=== PATIENT | female | born 1950 | race Caucasian/White ===

== ENCOUNTER 2019-06-04 02:42 | Observation (INO) ==
[2019-06-04] MEDS ORDERED: Naloxone 0.4 MG/ML INJ IVP PRN (04:51)
--- NOTE | 2019-06-04 04:52 | Internal Med History&Physical ---
<Genevieve Pierre - Last Filed: 06/04/19 04:54> Date of Encounter: 06/04/19 Time of Encounter: 04:51 Internal Medicine - H&P: HPI Chief complaint: Tongue swelling Admitted From: Hospital to Hospital Transfer Plans for Post Hospital Care: Home History of present illness: Ms. Nguyen is a 68 year old female with past medical history of hypertension, "memory loss" who presented to [facility] as a transfer from [place] [facility] due to angioedema and potential need for intubation for protection of airway. Upon my examination the patient she reported that at about 11 o'clock tonight she woke up with the feeling of the right side of her tongue swelling the progressed to the feeling of her entire mouth swelling in her tongue taking up her whole mouth. She also had neck and submandibular swelling as well. Additionally she had difficulty breathing because of the tongue swelling and had up a wash cloth in her mouth to help. She took 2 Benadryl prior to going to ED. She denied any numbness, tingling, fever, chills, chest pain nausea, vomiting, abdominal pain, rash, itching. She reported having symptoms similar but much less severe with only having a little right tongue swelling that quickly resolved on its own about 2 weeks ago. She has been taking lisinopril for many years. She did recently start a new medication for her memory loss about 1 week ago and is not had any other side effects to it. She denied eating any new foods, new travel, new work type, insect bite. Denied any known allergies to food her medications. She denied tobacco use, alcohol, drug use. She is family history of mother dying of MD. She has a full code. At [place] [facility] the patient was given Benadryl, epinephrine, famotidine, methylprednisolone. She was transferred to [facility] ICU for observation in case the patient would to decompensate and have increased difficulty breathing and swelling requiring rapid sequence intubation. - Initial vitals: temperature 97.6, HR 61, RR 16, BP 206/87, SpO2 96% on room air. - WBC 11.4, hemoglobin 13, platelets 324. CMP unremarkable. Past Med Surg Social Fam HX - Past Medical History Attestation: Yes The following information was validated with the patient. Source: patient Medical history: hypertension, other Additional medical history: Memory loss Psychiatric history: no psych history - Past Surgical History Surgical History: appendectomy, hip replacement - Social History Smoking Status: Former smoker Alcohol use: none Drug use: none - Family History Mother Hx Family Cardiac Disorders: Yes (MD) Internal Medicine - H&P: Meds Allergy/AdvReac Type Severity Reaction Status Date / Time No Known Allergies Allergy Verified 06/04/19 01:25 All Systems PM: A 10-system review of systems was performed and is negative for pertinent findings except as documented above in the HPI. - Constitutional Constitutional: no chills, no fever(s) - EENT Eyes: no change in vision Nose, mouth and throat: throat swelling, tongue swelling - Cardiovascular Cardiovascular ROS IM: no chest pain, no palpitations - Respiratory Respiratory: dyspnea, no cough, no wheezing - Gastrointestinal Gastrointestinal: no abdominal pain, no nausea, no vomiting - Musculoskeletal Musculoskeletal ROS IM: no joint swelling, no muscle cramps - Integumentary Integumentary IM: no pruritus, no rash - Neurological Neurological ROS: memory loss, no dizziness, no headache(s) - Hematologic/Lymphatic Hematologic/Lymphatic: no easy bruising - Allergic/Immunologic Allergic/Immunologic: tongue swelling, throat swelling, no uticaria - Constitutional Vitals: Temp Pulse Resp BP Pulse Ox 98.2 F 71 12 188/55 96 06/04/19 04:00 06/04/19 04:00 06/04/19 04:00 06/04/19 04:00 06/04/19 04:00 Exam: Gen.: Vitals noted. No acute distress. AAOx3 HEENT: oropharynx clear, no swelling of the soft hard palate or tongue, Normocephalic, atraumatic Neck: swelling of submandibular region and tenderness Cardiac: RRR, no murmur, +S1/S2 Pulmonary: CTA bilaterally, no wheezes, rales or rhonchi, equal chest expansion Abdomen: soft, nontender, Bowel sounds noted, no guarding MSK: ROM intact, no joint swelling noted Extremities: no BLE edema, nontender calf, no cyanosis or clubbing Neuro: A&Ox3, moves all extremities, no focal deficits Psych: Appropriate mood and behavior - Assessment and Plan (1) Angioedema Current Visit: No Status: Acute Assessment and plan: New onset angioedema with tongue swelling, swollen throat and submandibular region causing difficulty in breathing. 2 weeks ago patient had right-sided tongue swelling that quickly resolved on its own. -Etiology is highly suspicious for reaction to lisinopril. She has had recent new medication for memory loss (patient unsure of medication that will bring list) that she has been taking for one week now that should also consider, however she had a less severe reaction with tongue swelling one week prior to starting this new medication. 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 Unlikely food reaction. No new insect bites. No known allergies to food or medications previously. Unlikely to be a peritonsillar abscess as the patient does not have fever, chills. At [place] the patient had been given Benadryl, epinephrine, famotidine, methylprednisolone. - Patient is currently on room air 96% SpO2. She is clinically improved. - on examination patient does not have swelling of the tongue or soft/ hard teller te. She does still have swelling of her neck and submandibular region. Patient reports that the swelling has significantly decreased and she does not have any difficulty breathing. No hives or itching. Plan: - would consider discharging with oral prednisone 20-40 mg steroid tapered over 5 to 7 days - if patient were to have increased swelling or difficulty breathing then we will prepare for rapid sequence intubation. Would also give additional IV Solu- Medrol, epinephrine (IM or drip). Also consider giving Icatibant which is a synthetic bradykinin B2 receptor antagonist that is approved for the treatment of hereditary angioedema and possibly fresh frozen plasma that may help with ACEi angioedema as it contains DIANELYS. - Consider ordering C4 level to evaluate for C1 deficiency - close monitoring for increased swelling or difficulty breathing - supplemental oxygen PRN - DO NOT give lisinopril. Instructed patient to no longer take lisinopril since she has had this reaction. The etiology is most likely secondary to this medication however, if she were to develop a similar reaction with abstaining from taking lisinopril then further testing would need to be pursued to evaluate for etiology such as a hereditary required C1 inhibitor deficiency. Qualifiers: Encounter type: initial encounter Qualified Code(s): T78.3XXA - Angio neurotic edema, initial encounter (2) Hypertension Current Visit: Yes Status: Acute Assessment and plan: Patient is known history of hypertension taking lisinopril for many years. -BP elevated 188/55 -holding home lisinopril due to angioedema -will order hydralazine PRN -patient will likely need to be started on new antihypertensive medication. Consider calcium channel michael. Qualifiers: Hypertension type: essential hypertension Qualified Code(s): I10 - Essential (primary) hypertension (3) DVT prophylaxis Current Visit: Yes Status: Acute Assessment and plan: Heparin SQ (4) Leukocytosis Current Visit: Yes Status: Acute Assessment and plan: The patient is a mild leukocytosis with WBC 11.4. This is likely secondary to acute swelling and angioedema. She is afebrile and there is no obvious source of infection. -Will continue to monitor. No antibiotics at this time Qualifiers: Leukocytosis type: unspecified Qualified Code(s): D72.829 - Elevated white blood cell count, unspecified - Time Spent With Patient Total time spent is greater than 50% in coordination of care (as documented) at patient's floor/unit and/or counseling patient: <Thelma Handy - Last Filed: 06/04/19 10:29> Date of Encounter: 06/04/19 Internal Medicine - H&P: HPI History of present illness: Ms. Nguyen is a 68 year old female All Systems PM: A 10-system review of systems was performed and is negative for pertinent findings except as documented above in the HPI. - Constitutional Vitals: Temp Pulse Resp BP Pulse Ox 98.6 F 79 16 151/61 96 06/04/19 06:48 06/04/19 08:00 06/04/19 08:00 06/04/19 08:00 06/04/19 08:00 - Assessment and Plan (1) Angioedema Current Visit: No Status: Acute Qualifiers: Encounter type: initial encounter Qualified Code(s): T78.3XXA - Angioneurotic edema, initial encounter (2) Hypertension Current Visit: Yes Status: Acute Qualifiers: Hypertension type: essential hypertension Qualified Code(s): I10 - Essent ial (primary) hypertension (3) DVT prophylaxis Current Visit: Yes Status: Acute (4) Leukocytosis Current Visit: Yes Status: Acute Qualifiers: Leukocytosis type: unspecified Qualified Code(s): D72.829 - Elevated white blood cell count, unspecified - Time Spent With Patient Total time spent is greater than 50% in coordination of care (as documented) at patient's floor/unit and/or counseling patient: - Attending Attestation I performed a history and physical examination of the patient and discussed their management with the resident. I reviewed the resident's note and agree with the documented plan of care.
[2019-06-04 12:25] VITALS: BP 190/78
--- NOTE | 2019-06-04 12:30 | Discharge Summary ---
- NOTES TO OUTPATIENT PROVIDER Notes to Outpatient Provider: Follow-up with blood pressure after lisinopril DC'd. Date of Encounter: 06/04/19 Time of Encounter: 12:06 - Discharge Diagnosis (1) Angioedema Priority: Primary Status: Acute Qualifiers: Encounter type: initial encounter Qualified Code(s): T78.3XXA - Angioneurotic edema, initial encounter (2) Hypertension Priority: Secondary Status: Acute Qualifiers: Hypertension type: essential hypertension Qualified Code(s): I10 - Essential (primary) hypertension (3) DVT prophylaxis Priority: Secondary Status: Acute (4) Leukocytosis Priority: Secondary Status: Acute Qualifiers: Leukocytosis type: unspecified Qualified Code(s): D72.829 - Elevated white blood cell count, unspecified Hospital course: Ms. Nguyen is a 68 year old female with past medical history of hypertension on lisinopril presented as a transfer from [place] ED due to angioedema. Patient woke up with tongue welling and submandibular swelling with resulting SOB. She had similar symptoms that resolved two weeks ago. She has taken lisinopril for many years. In [place] ED she was given Benadryl, epinephrine, Pepcid, Solu Medrol. She was transferred here for close monitoring of airway. On arrival patient was hemodynamically stable. Her tongue swelling dramatically improved. She did not have any further need for epinephrine. Lisinopril was held on admission. Denver jauregui BP did rise after lisinopril is held and so she was started on Norvasc. She was discharged home in stable condition with prescription for Norvasc, Prednisone, Pepcid, Zyrtec. - Time Spent with Patient Total time spent providing and/or coordinating discharge services: - Discharge Medications Home Medications: Cetirizine HCl [Zyrtec] 10 mg PO DAILY 7 Days #7 tablet 06/04/19 [Rx] Famotidine [Pepcid] 20 mg PO BID #14 tablet 06/04/19 [Rx] amLODIPine [Norvasc] 5 mg PO DAILY #14 tablet 06/04/19 [Rx] predniSONE [PredniSONE] 40 mg PO DAILY #10 tablet 06/04/19 [Rx] Allergies/Adverse Reactions: Allergy/AdvReac Type Severity Reaction Status Date / Time No Known Allergies Allergy Verified 06/04/19 01:25 Date of admission: 06/04/19 03:18 Primary care physician: Thang Alcantar Jr, MD Discharging clinician: Qing Reyes - Constitutional Vitals: Temp Pulse Resp BP Pulse Ox 98.5 F 83 16 145/77 96 06/04/19 11:16 06/04/19 10:00 06/04/19 10:00 06/04/19 10:00 06/04/19 10:00 Exam: Gen.: No acute distress. AAOx3 Head: NC/AT ENT: mild swelling of tongue Neck: No swelling of submandibular region as previously present. Cardiac: RRR, no murmur, +S1/S2 Pulmonary: CTA bilaterally, no wheezes, rales or rhonchi, equal chest expansion Abdomen: soft, nontender, Bowel sounds noted, no guarding MSK: ROM intact, no joint swelling noted Extremities: no BLE edema, nontender calf, no cyanosis or clubbing Neuro: A&Ox3, moves all extremities, no focal deficits Psych: Irritable mood - Patient Status Disposition: Home, Self-Care Condition: Good Functional capacity at discharge: independent ambulation Overall status at discharge: patient is progressing back to baseline - Discharge Instructions Follow Up With: Thang Alcantar Jr, MD [Primary Care Provider] - Additional Instructions: Follow-up with primary care physician to adjust BP medications. - Diet and Activity Activity: increase activity as tolerated Diet: low fat, low cholesterol, low salt diet
== END 2019-06-04 13:05 | disposition home or self-care (01) ==
LOC: ICNU → SUATTDRO 03:18
PROVIDERS: ADMIT Internal Medicine; ATTEND Student in an Organized Health Care Education/Training Program

== ENCOUNTER 2021-06-22 07:17 | Inpatient (IN) ==
[2021-06-22] MEDS ORDERED: methylPREDNISolone 125 MG/2 ML VIAL IVP ONE (07:29)
[2021-06-22] MEDS ORDERED: EPINEPHrine 1 MG/ML VIAL IM ONE (07:29)
[2021-06-22] MEDS ORDERED: Famotidine 20 MG/2 ML VIAL IVP ONE (07:29)
[2021-06-22] MEDS ORDERED: methylPREDNISolone 125 MG/2 ML VIAL ONE (07:34)
[2021-06-22] MEDS ORDERED: *HR* EPINEPHrine 0.3 MG/0.3 ML (PEN) ONE (07:34)
[2021-06-22] MEDS ORDERED: EPINEPHrine 1 MG/ML VIAL ONE (07:51)
[2021-06-22] MEDS ORDERED: Racepinephrine Neb 0.5 ML VIAL IH ONE (07:57)
[2021-06-22] MEDS ORDERED: Lidocaine -MPF 4% 5 ML AMPUL ONE (08:06)
[2021-06-22] MEDS ORDERED: Lidocaine 1% 20 ML MDV ONE (08:11)
[2021-06-22] MEDS ORDERED: Lidocaine/EPI 1:200k 1% PF 10 ML VIAL ONE (08:14)
[2021-06-22] MEDS ORDERED: Oxymetazoline Nasal SPRAY BOTTLE NS ONE (08:19)
[2021-06-22] MEDS ORDERED: Lidocaine Jelly 11 ml Syringe ONE (08:19)
[2021-06-22] MEDS ORDERED: *HR* Succinylcholine 200 MG/10 ML VIAL IVP ONE (08:22)
[2021-06-22] MEDS ORDERED: Lidocaine -MPF 2% 2 ML VIAL ONE (08:22)
[2021-06-22] MEDS ORDERED: *HR* Midazolam HCl 2 MG/2 ML VIAL ONE ×3 (08:23→09:17)
[2021-06-22] MEDS ORDERED: *HR* Propofol 200 MG/20 ML VIAL IVP ONE (08:23)
[2021-06-22] MEDS ORDERED: *HR* FentaNYL (PF) 100 MCG/2 ML VIAL ONE (08:23)
[2021-06-22] MEDS ORDERED: Lidocaine/EPI 1:100k 1% 50 ML VIAL ONE (08:27)
[2021-06-22] MEDS ORDERED: Lacri-Lube 3.5 GM TUBE ONE (09:05)
[2021-06-22] MEDS ORDERED: Albuterol 2.5 MG/3 ML NEBULIZER IH PRN (13:07)
[2021-06-22] MEDS ORDERED: Artificial Tears SOLN 15 ML BOTTLE BOTH EYES PRN (13:07)
[2021-06-22] MEDS ORDERED: Naloxone 0.4 MG/ML INJ IVP PRN (13:07)
[2021-06-22] MEDS: FentaNYL (PF) 1,000 MCG/100 ML IV.SOLN IVC SCH (14:44)
[2021-06-22 14:46] LABS: Basophils % 0.2 %; Immature Granulocytes % 0.5 % (0-4); Lymphocytes # 1.1 K/mcL (0.6-4.6); Lymphocytes % 5.1 %; Mean Corpuscular Hemoglobin 25.9 pg (28.0-33.3); Mean Corpuscular Volume 83.7 fL (83.0-100.0); Mean Platelet Volume 10.6 fL (9.4-12.4); Monocytes # 0.3 K/mcL (0.0-1.3); Monocytes % 1.6 %; Neutrophils # 19.4 K/mcL (1.6-8.9); Platelet Count 253 K/mcL (140-400); Red Blood Count 5.02 M/mcL (3.82-4.97); Red Cell Distribution Width 14.1 % (11.5-14.5); Segmented Neutrophils % 92.6 %
[2021-06-22 15:02] LABS: Troponin I 0.21 ng/mL (< 0.04)
[2021-06-22 15:06] LABS: ABG Base Excess 1 mEq/L (-2 to 3); ABG HCO3 24 mEq/L (21-27); ABG Oxygen Saturation 100 % (95-98); ABG PCO2 34 mmHg (35-45); ABG PH 7.47 pH Units (7.32-7.45); ABG PO2 157 mmHg (85-104); ABG TCO2 25 mEq/L (20-26); Blood Gas Modality ASSIST CONTROL; Blood Gas VT 450 cc
[2021-06-22] MEDS: Ipratropium/Albuterol Neb 3 ML IH SCH ×3 (15:08→23:38)
[2021-06-22 15:40] LABS: Alanine Aminotransferase 28 Units/L (7-52); Albumin 4.1 g/dL (3.5-5.7); Albumin/Globulin Ratio 2.3 (1.1-2.2); Alkaline Phosphatase 38 Units/L (34-104); Aspartate Amino Transferase 32 Units/L (13-39); BUN/Creatinine Ratio 20 (6-26); Bilirubin,Direct 0.1 mg/dL (0.0-0.2); Bilirubin,Indirect 0.5 mg/dL (0.0-1.0); Bilirubin,Total 0.6 mg/dL (0.3-1.0); Blood Urea Nitrogen 16 mg/dL (8-23); Calcium 9.3 mg/dL (8.6-10.3); Carbon Dioxide 24 mEq/L (23-29); Chloride 100 mEq/L (98-107); Globulin 1.8 g/dL (2.4-3.5); Glucose 206 mg/dL (70-105); Magnesium 1.5 mg/dL (1.6-2.6); Osmolality,Calculated 291 (280-300); Phosphorous 1.3 mg/dL (2.7-4.5); Potassium 3.4 mEq/L (3.5-5.1); Sodium 137 mEq/L (136-145); Total Protein 5.9 g/dL (6.4-8.9); eGFR For African Americans > 60 (> 60); eGFR For Non-African Americans > 60 (> 60)
[2021-06-22] MEDS: Artificial Tears SOLN 15 ML BOTTLE BOTH EYES SCH ×3 (15:56→23:45)
[2021-06-22] MEDS: *HR* Heparin 5,000 UNIT/ML VIAL SQ SCH ×2 (15:56→23:47)
[2021-06-22] MEDS: Famotidine 20 MG/2 ML VIAL IVP SCH (17:30)
[2021-06-22 18:28] LABS: Troponin I 0.27 ng/mL (< 0.04)
[2021-06-22] MEDS: Chlorhexidine Rinse 15 ML MOUTHWASH MM SCH (19:58)
[2021-06-23] MEDS: FentaNYL (PF) 1,000 MCG/100 ML IV.SOLN IVC SCH ×3 (01:00→21:54)
[2021-06-23 02:14] LABS: Basophils % 0.1 %; Hematocrit 39.2 % (35.3-44.9); Hemoglobin 12.5 g/dL (11.5-15.4); Immature Granulocytes % 0.5 % (0-4); Lymphocytes # 1.6 K/mcL (0.6-4.6); Lymphocytes % 6.5 %; Mean Corpuscular HGB Conc 31.9 g/dL (31.6-35.5); Mean Corpuscular Hemoglobin 26.2 pg (28.0-33.3); Mean Corpuscular Volume 82.2 fL (83.0-100.0); Mean Platelet Volume 11.1 fL (9.4-12.4); Monocytes # 0.8 K/mcL (0.0-1.3); Monocytes % 3.3 %; Neutrophils # 22.2 K/mcL (1.6-8.9); Platelet Count 311 K/mcL (140-400); Red Blood Count 4.77 M/mcL (3.82-4.97); Red Cell Distribution Width 14.3 % (11.5-14.5); Segmented Neutrophils % 89.6 %; White Blood Count 24.8 K/mcL (4.3-11.1)
[2021-06-23 02:28] LABS: Alanine Aminotransferase 23 Units/L (7-52); Albumin 3.7 g/dL (3.5-5.7); Albumin/Globulin Ratio 1.4 (1.1-2.2); Alkaline Phosphatase 34 Units/L (34-104); Aspartate Amino Transferase 25 Units/L (13-39); BUN/Creatinine Ratio 23 (6-26); Bilirubin,Total 0.4 mg/dL (0.3-1.0); Blood Urea Nitrogen 23 mg/dL (8-23); Calcium 8.9 mg/dL (8.6-10.3); Carbon Dioxide 24 mEq/L (23-29); Chloride 99 mEq/L (98-107); Globulin 2.6 g/dL (2.4-3.5); Glucose 166 mg/dL (70-105); Magnesium 1.4 mg/dL (1.6-2.6); Osmolality,Calculated 291 (280-300); Phosphorous 2.7 mg/dL (2.7-4.5); Potassium 3.8 mEq/L (3.5-5.1); Sodium 137 mEq/L (136-145); Total Protein 6.3 g/dL (6.4-8.9); eGFR For African Americans > 60 (> 60); eGFR For Non-African Americans 56 (> 60)
[2021-06-23 02:38] LABS: Platelet Estimate Normal (Normal)
[2021-06-23] MEDS: Ipratropium/Albuterol Neb 3 ML IH SCH ×6 (03:37→23:45)
[2021-06-23] MEDS: Artificial Tears SOLN 15 ML BOTTLE BOTH EYES SCH ×6 (03:58→23:23)
[2021-06-23 04:46] LABS: ABG Base Excess 2 mEq/L (-2 to 3); ABG HCO3 26 mEq/L (21-27); ABG Oxygen Saturation 92 % (95-98); ABG PCO2 37 mmHg (35-45); ABG PH 7.45 pH Units (7.32-7.45); ABG PO2 61 mmHg (85-104); ABG TCO2 27 mEq/L (20-26); Blood Gas VT 420 cc
[2021-06-23 05:22] LABS: VBG Ionized Calcium 0.96 mmol/L (1.15-1.35)
[2021-06-23 05:31] LABS: Basophils % 0.1 %; Hematocrit 37.4 % (35.3-44.9); Hemoglobin 11.9 g/dL (11.5-15.4); Immature Granulocytes % 0.5 % (0-4); Lymphocytes # 1.4 K/mcL (0.6-4.6); Lymphocytes % 5.8 %; Mean Corpuscular HGB Conc 31.8 g/dL (31.6-35.5); Mean Corpuscular Hemoglobin 26.7 pg (28.0-33.3); Mean Corpuscular Volume 83.9 fL (83.0-100.0); Mean Platelet Volume 11.4 fL (9.4-12.4); Monocytes # 0.9 K/mcL (0.0-1.3); Monocytes % 3.8 %; Platelet Count 244 K/mcL (140-400); Red Blood Count 4.46 M/mcL (3.82-4.97); Red Cell Distribution Width 14.5 % (11.5-14.5); Segmented Neutrophils % 89.8 %; White Blood Count 24.2 K/mcL (4.3-11.1)
[2021-06-23 05:36] LABS: Neutrophils # 21.7 K/mcL (1.6-8.9)
[2021-06-23] MEDS: Famotidine 20 MG/2 ML VIAL IVP SCH ×2 (05:58→18:19)
[2021-06-23 06:18] LABS: Platelet Estimate Normal (Normal)
[2021-06-23] MEDS: Chlorhexidine Rinse 15 ML MOUTHWASH MM SCH ×2 (08:47→19:42)
[2021-06-23] MEDS: *HR* Heparin 5,000 UNIT/ML VIAL SQ SCH ×3 (08:48→23:24)
[2021-06-23 14:02] LABS: BUN/Creatinine Ratio 28 (6-26); Blood Urea Nitrogen 28 mg/dL (8-23); Calcium 8.5 mg/dL (8.6-10.3); Carbon Dioxide 21 mEq/L (23-29); Chloride 100 mEq/L (98-107); Glucose 201 mg/dL (70-105); Magnesium 2.3 mg/dL (1.6-2.6); Osmolality,Calculated 291 (280-300); Phosphorous 4.2 mg/dL (2.7-4.5); Potassium 3.8 mEq/L (3.5-5.1); Sodium 135 mEq/L (136-145); eGFR For African Americans > 60 (> 60); eGFR For Non-African Americans 56 (> 60)
[2021-06-24] MEDS: Artificial Tears SOLN 15 ML BOTTLE BOTH EYES SCH ×5 (03:27→20:22)
[2021-06-24] MEDS: Ipratropium/Albuterol Neb 3 ML IH SCH ×6 (03:45→23:36)
[2021-06-24 05:03] LABS: ABG Base Excess 2 mEq/L (-2 to 3); ABG HCO3 27 mEq/L (21-27); ABG Oxygen Saturation 94 % (95-98); ABG PCO2 41 mmHg (35-45); ABG PH 7.42 pH Units (7.32-7.45); ABG PO2 68 mmHg (85-104); ABG TCO2 28 mEq/L (20-26); Blood Gas Modality ASSIST CONTROL; Blood Gas VT 420 cc
[2021-06-24] MEDS: Famotidine 20 MG/2 ML VIAL IVP SCH ×3 (06:14→19:49)
[2021-06-24] MEDS: FentaNYL (PF) 1,000 MCG/100 ML IV.SOLN IVC SCH (06:24)
[2021-06-24 07:10] LABS: Basophils % 0.1 %; Hematocrit 34.8 % (35.3-44.9); Immature Granulocytes % 0.7 % (0-4); Lymphocytes # 1.3 K/mcL (0.6-4.6); Lymphocytes % 6.5 %; Mean Corpuscular HGB Conc 31.6 g/dL (31.6-35.5); Mean Corpuscular Hemoglobin 25.9 pg (28.0-33.3); Mean Corpuscular Volume 82.1 fL (83.0-100.0); Mean Platelet Volume 10.9 fL (9.4-12.4); Monocytes # 0.9 K/mcL (0.0-1.3); Monocytes % 4.7 %; Neutrophils # 17.5 K/mcL (1.6-8.9); Platelet Count 263 K/mcL (140-400); Red Blood Count 4.24 M/mcL (3.82-4.97); Red Cell Distribution Width 14.7 % (11.5-14.5); White Blood Count 19.9 K/mcL (4.3-11.1)
[2021-06-24 07:32] LABS: BUN/Creatinine Ratio 41 (6-26); Blood Urea Nitrogen 38 mg/dL (8-23); Calcium 8.9 mg/dL (8.6-10.3); Carbon Dioxide 27 mEq/L (23-29); Chloride 101 mEq/L (98-107); Glucose 217 mg/dL (70-105); Magnesium 2.5 mg/dL (1.6-2.6); Osmolality,Calculated 300 (280-300); Phosphorous 3.2 mg/dL (2.7-4.5); Potassium 3.7 mEq/L (3.5-5.1); Sodium 137 mEq/L (136-145); eGFR For African Americans > 60 (> 60); eGFR For Non-African Americans > 60 (> 60)
[2021-06-24] MEDS: *HR* Heparin 5,000 UNIT/ML VIAL SQ SCH ×3 (09:17→19:49)
[2021-06-24] MEDS: Chlorhexidine Rinse 15 ML MOUTHWASH MM SCH ×2 (09:17→20:22)
[2021-06-24] MEDS ORDERED: *HR* Labetalol 20 MG/4 ML SYRINGE IVP PRN (16:28)
[2021-06-24] MEDS ORDERED: Chloraseptic Spray 177 ML BOTTLE MM PRN (20:36)
[2021-06-25] MEDS: Artificial Tears SOLN 15 ML BOTTLE BOTH EYES SCH ×3 (00:13→08:29)
[2021-06-25] MEDS: *HR* Heparin 5,000 UNIT/ML VIAL SQ SCH ×3 (00:13→15:38)
[2021-06-25] MEDS: Ipratropium/Albuterol Neb 3 ML IH SCH ×5 (03:29→21:00)
[2021-06-25] MEDS: Famotidine 20 MG/2 ML VIAL IVP SCH ×2 (05:02→18:47)
[2021-06-25] MEDS: Chlorhexidine Rinse 15 ML MOUTHWASH MM SCH (08:30)
[2021-06-25 09:47] LABS: Basophils % 0.2 %; Hematocrit 36.4 % (35.3-44.9); Hemoglobin 11.6 g/dL (11.5-15.4); Immature Granulocytes % 1.2 % (0-4); Lymphocytes # 1.1 K/mcL (0.6-4.6); Lymphocytes % 6.2 %; Mean Corpuscular HGB Conc 31.9 g/dL (31.6-35.5); Mean Corpuscular Hemoglobin 26.4 pg (28.0-33.3); Mean Corpuscular Volume 82.9 fL (83.0-100.0); Mean Platelet Volume 10.8 fL (9.4-12.4); Monocytes # 1.3 K/mcL (0.0-1.3); Monocytes % 7.4 %; Neutrophils # 15.2 K/mcL (1.6-8.9); Platelet Count 307 K/mcL (140-400); Red Blood Count 4.39 M/mcL (3.82-4.97); Red Cell Distribution Width 14.8 % (11.5-14.5); White Blood Count 17.9 K/mcL (4.3-11.1)
[2021-06-25 10:04] LABS: BUN/Creatinine Ratio 46 (6-26); Blood Urea Nitrogen 32 mg/dL (8-23); Calcium 9.1 mg/dL (8.6-10.3); Carbon Dioxide 29 mEq/L (23-29); Chloride 106 mEq/L (98-107); Glucose 195 mg/dL (70-105); Osmolality,Calculated 306 (280-300); Sodium 142 mEq/L (136-145); eGFR For African Americans > 60 (> 60); eGFR For Non-African Americans > 60 (> 60)
[2021-06-25] MEDS ORDERED: Chloraseptic Spray 177 ML BOTTLE MM PRN (11:34)
[2021-06-25] MEDS ORDERED: Naloxone 0.4 MG/ML INJ IVP PRN (11:34)
[2021-06-25] MEDS ORDERED: Albuterol 2.5 MG/3 ML NEBULIZER IH PRN (11:34)
[2021-06-25] MEDS: *HR* Labetalol 20 MG/4 ML SYRINGE IVP PRN (20:33)
[2021-06-26] MEDS: Ipratropium/Albuterol Neb 3 ML IH SCH ×5 (00:14→16:28)
[2021-06-26] MEDS: *HR* Heparin 5,000 UNIT/ML VIAL SQ SCH ×2 (00:34→07:52)
[2021-06-26] MEDS: *HR* Labetalol 20 MG/4 ML SYRINGE IVP PRN (02:50)
[2021-06-26 03:08] LABS: Beech Tree IgE <0.10 kU/L (<=0.34); Bermuda Grass IgE <0.10 kU/L (<=0.34); Cat Dander IgE 0.57 kU/L (<=0.34); Cocklebur IgE <0.10 kU/L (<=0.34); Cottonwood IgE <0.10 kU/L (<=0.34); Dandelion IgE <0.10 kU/L (<=0.34); Dog Dander IgE 0.69 kU/L (<=0.34); Dust Mite DF IgE <0.10 kU/L (<=0.34); Elm Tree IgE <0.10 kU/L (<=0.34); False Ragweed IgE <0.10 kU/L (<=0.34); Goldenrod IgE <0.10 kU/L (<=0.34); Hormodendrum(Cladosporium) IgE <0.10 kU/L (<=0.34); June/Kentucky Blue Grass IgE <0.10 kU/L (<=0.34); Meadow Fescue Grass IgE <0.10 kU/L (<=0.34); Oak Tree IgE <0.10 kU/L (<=0.34); Orchard/Cocksfoot Grass IgE <0.10 kU/L (<=0.34); Sagebrush Wormwood IgE <0.10 kU/L (<=0.34); Sycamore IgE <0.10 kU/L (<=0.34); Timothy Grass IgE <0.10 kU/L (<=0.34); Willow Tree IgE <0.10 kU/L (<=0.34)
[2021-06-26] MEDS: Famotidine 20 MG/2 ML VIAL IVP SCH (04:46)
[2021-06-26 05:43] LABS: VBG Ionized Calcium 1.17 mmol/L (1.15-1.35)
[2021-06-26 05:50] LABS: Basophils % 0.2 %; Hemoglobin 11.7 g/dL (11.5-15.4); Immature Granulocytes % 1.4 % (0-4); Lymphocytes # 1.7 K/mcL (0.6-4.6); Lymphocytes % 11.8 %; Mean Corpuscular HGB Conc 32.5 g/dL (31.6-35.5); Mean Corpuscular Hemoglobin 26.8 pg (28.0-33.3); Mean Corpuscular Volume 82.4 fL (83.0-100.0); Mean Platelet Volume 10.4 fL (9.4-12.4); Monocytes # 1.3 K/mcL (0.0-1.3); Monocytes % 9.2 %; Neutrophils # 11.1 K/mcL (1.6-8.9); Platelet Count 285 K/mcL (140-400); Red Blood Count 4.37 M/mcL (3.82-4.97); Red Cell Distribution Width 14.6 % (11.5-14.5); Segmented Neutrophils % 77.4 %; White Blood Count 14.4 K/mcL (4.3-11.1)
[2021-06-26 06:05] LABS: Alanine Aminotransferase 83 Units/L (7-52); Albumin 3.8 g/dL (3.5-5.7); Albumin/Globulin Ratio 1.6 (1.1-2.2); Alkaline Phosphatase 37 Units/L (34-104); Aspartate Amino Transferase 56 Units/L (13-39); BUN/Creatinine Ratio 34 (6-26); Bilirubin,Total 0.6 mg/dL (0.3-1.0); Blood Urea Nitrogen 24 mg/dL (8-23); Calcium 9.2 mg/dL (8.6-10.3); Carbon Dioxide 29 mEq/L (23-29); Chloride 103 mEq/L (98-107); Globulin 2.4 g/dL (2.4-3.5); Glucose 172 mg/dL (70-105); Magnesium 2.3 mg/dL (1.6-2.6); Osmolality,Calculated 296 (280-300); Phosphorous 2.5 mg/dL (2.7-4.5); Potassium 4.2 mEq/L (3.5-5.1); Sodium 139 mEq/L (136-145); Total Protein 6.2 g/dL (6.4-8.9); eGFR For African Americans > 60 (> 60); eGFR For Non-African Americans > 60 (> 60)
[2021-06-26] MEDS ORDERED: hydroCHLOROthiazide 25 MG TABLET PO SCH (09:00)
[2021-06-26 10:59] VITALS: PULSE 58; TEMP 98.1
[2021-06-26 11:15] VITALS: O2SAT 91
[2021-06-26] MEDS ORDERED: amLODIPine 5 MG TABLET PO SCH (11:45)
[2021-06-26 16:24] VITALS: BP 147/79
[2021-06-27] MEDS ORDERED: predniSONE 20 MG TABLET PO SCH (09:00)
== END 2021-06-26 17:10 | disposition home or self-care (01) | DRG 915 ==
LOC: ICNU 07:17 → EMEROOARM 07:17 → ICNU 08:20 → SUATTDRO 13:19 → 2NNU 06-25 09:58
PROVIDERS: ADMIT Pediatrics; ATTEND Internal Medicine

== ENCOUNTER 2021-08-21 22:01 | Inpatient (IN) ==
[2021-08-21] MEDS ORDERED: methylPREDNISolone 125 MG/2 ML VIAL IVP ONE (22:17)
[2021-08-21] MEDS ORDERED: EPINEPHrine 1 MG/ML VIAL IM ONE (22:17)
[2021-08-21] MEDS ORDERED: Famotidine 20 MG/2 ML VIAL IVP ONE (22:17)
[2021-08-21] MEDS ORDERED: Racepinephrine Neb 0.5 ML VIAL IH ONE (22:18)
[2021-08-21] MEDS ORDERED: Tranexamic Acid 1,000 MG/100ML 1,000 MG/100 ML PIGGYBACK IVPB ONE ×2 (22:30→22:41)
[2021-08-21] MEDS ORDERED: 0.9 % Sodium Chloride 1,000 ML ONE (22:32)
[2021-08-21] MEDS ORDERED: *HR* FentaNYL (PF) 100 MCG/2 ML VIAL IVP ONE ×3 (22:51→23:36)
[2021-08-21] MEDS ORDERED: *HR* FentaNYL (PF) 100 MCG/2 ML VIAL ONE ×2 (22:54→23:28)
[2021-08-21 23:04] LABS: Basophils # 0.1 K/mcL (0.0-0.2); Basophils % 0.7 %; Eosinophils # 0.3 K/mcL (0.0-0.6); Eosinophils % 2.9 %; Hematocrit 38.3 % (35.3-44.9); Hemoglobin 11.8 g/dL (11.5-15.4); Immature Granulocytes % 0.4 % (0-4); Lymphocytes # 3.4 K/mcL (0.6-4.6); Lymphocytes % 36.1 %; Mean Corpuscular HGB Conc 30.8 g/dL (31.6-35.5); Mean Corpuscular Hemoglobin 25.5 pg (28.0-33.3); Mean Corpuscular Volume 82.7 fL (83.0-100.0); Mean Platelet Volume 10.6 fL (9.4-12.4); Monocytes # 0.8 K/mcL (0.0-1.3); Monocytes % 8.5 %; Neutrophils # 4.8 K/mcL (1.6-8.9); Platelet Count 312 K/mcL (140-400); Red Blood Count 4.63 M/mcL (3.82-4.97); Red Cell Distribution Width 14.8 % (11.5-14.5); Segmented Neutrophils % 51.4 %; White Blood Count 9.4 K/mcL (4.3-11.1)
[2021-08-21 23:10] LABS: Alanine Aminotransferase 14 Units/L (7-52); Albumin/Globulin Ratio 1.5 (1.1-2.2); Alkaline Phosphatase 38 Units/L (34-104); Aspartate Amino Transferase 18 Units/L (13-39); BUN/Creatinine Ratio 22 (6-26); Bilirubin,Total 0.3 mg/dL (0.3-1.0); Blood Urea Nitrogen 17 mg/dL (8-23); Calcium 9.6 mg/dL (8.6-10.3); Carbon Dioxide 30 mEq/L (23-29); Chloride 99 mEq/L (98-107); Globulin 2.6 g/dL (2.4-3.5); Glucose 111 mg/dL (70-105); Osmolality,Calculated 284 (280-300); Potassium 3.4 mEq/L (3.5-5.1); Sodium 136 mEq/L (136-145); Total Protein 6.6 g/dL (6.4-8.9); eGFR For African Americans > 60 (> 60); eGFR For Non-African Americans > 60 (> 60)
[2021-08-21] MEDS ORDERED: Naloxone 0.4 MG/ML INJ IVP PRN (23:38)
[2021-08-21] MEDS ORDERED: Ondansetron 4 MG/2 ML VIAL IVP PRN (23:45)
[2021-08-21] MEDS ORDERED: Melatonin 3 MG TABLET PO PRN (23:45)
[2021-08-21] MEDS ORDERED: *HR* Promethazine 25 MG/ML VIAL IM PRN (23:45)
[2021-08-21] MEDS ORDERED: Artificial Tears SOLN 15 ML BOTTLE BOTH EYES PRN (23:52)
[2021-08-21 23:58] LABS: Influenza A PCR Negative (Negative); Influenza B PCR Negative (Negative); Resp. Syncytial Virus PCR Negative (Negative)
[2021-08-21 23:59] LABS: SARS-CoV-2 by PCR (In House) Negative (Negative)
[2021-08-22] MEDS ORDERED: *HR* FentaNYL (PF) 100 MCG/2 ML VIAL IVP ONE (00:16)
[2021-08-22] MEDS ORDERED: *HR* FentaNYL (PF) 100 MCG/2 ML VIAL ONE (00:18)
[2021-08-22] MEDS: FentaNYL (PF) 1,000 MCG/100 ML IV.SOLN IVC SCH ×4 (00:40→22:01)
[2021-08-22] MEDS: Artificial Tears SOLN 15 ML BOTTLE BOTH EYES SCH ×7 (00:45→23:42)
[2021-08-22] MEDS: *HR* Metoprolol 5 MG/5 ML VIAL IVP SCH ×2 (00:46→05:14)
[2021-08-22] MEDS: Ringers Solution, Lactated 1,000 ML IVC SCH (01:19)
[2021-08-22 01:40] LABS: ABG Base Excess 1 mEq/L (-2 to 3); ABG HCO3 27 mEq/L (21-27); ABG Oxygen Saturation 97 % (95-98); ABG PCO2 47 mmHg (35-45); ABG PH 7.37 pH Units (7.32-7.45); ABG PO2 94 mmHg (85-104); ABG TCO2 28 mEq/L (20-26); Blood Gas Modality ASSIST CONTROL; Blood Gas VT 350 cc
[2021-08-22] MEDS ORDERED: Midazolam HCl 50 MG/100 ML IV.SOLN IVC SCH (02:45)
[2021-08-22] MEDS: Dexamethasone Sodium Phos/PF 10 MG/ML VIAL IVP SCH ×4 (03:20→21:33)
[2021-08-22 03:29] LABS: INR 1.1; Prothrombin Time 12.2 Seconds (9.4-12.1)
[2021-08-22 03:47] LABS: BUN/Creatinine Ratio 24 (6-26); Blood Urea Nitrogen 18 mg/dL (8-23); Calcium 8.9 mg/dL (8.6-10.3); Carbon Dioxide 24 mEq/L (23-29); Chloride 104 mEq/L (98-107); Glucose 160 mg/dL (70-105); Osmolality,Calculated 291 (280-300); Potassium 3.6 mEq/L (3.5-5.1); Sodium 138 mEq/L (136-145); eGFR For African Americans > 60 (> 60); eGFR For Non-African Americans > 60 (> 60)
[2021-08-22 03:48] LABS: Magnesium 1.6 mg/dL (1.6-2.6); Phosphorous 2.2 mg/dL (2.7-4.5)
[2021-08-22 03:57] LABS: Basophils # 0.1 K/mcL (0.0-0.2); Basophils % 0.5 %; Eosinophils % 0.3 %; Hemoglobin 11.8 g/dL (11.5-15.4); Immature Granulocytes % 0.4 % (0-4); Lymphocytes # 1.3 K/mcL (0.6-4.6); Lymphocytes % 11.5 %; Mean Corpuscular HGB Conc 31.9 g/dL (31.6-35.5); Mean Corpuscular Hemoglobin 26.5 pg (28.0-33.3); Mean Platelet Volume 11.9 fL (9.4-12.4); Monocytes # 0.2 K/mcL (0.0-1.3); Monocytes % 1.6 %; Neutrophils # 9.6 K/mcL (1.6-8.9); Platelet Count 202 K/mcL (140-400); Red Blood Count 4.46 M/mcL (3.82-4.97); Red Cell Distribution Width 14.6 % (11.5-14.5); Segmented Neutrophils % 85.7 %; White Blood Count 11.2 K/mcL (4.3-11.1)
[2021-08-22 04:18] LABS: Platelet Estimate Normal (Normal)
[2021-08-22 04:56] LABS: ABG Base Excess 1 mEq/L (-2 to 3); ABG HCO3 25 mEq/L (21-27); ABG Oxygen Saturation 98 % (95-98); ABG PCO2 35 mmHg (35-45); ABG PH 7.46 pH Units (7.32-7.45); ABG PO2 105 mmHg (85-104); ABG TCO2 26 mEq/L (20-26); Blood Gas Modality ASSIST CONTROL; Blood Gas VT 400 cc
[2021-08-22] MEDS: *HR* Enoxaparin 40 MG/0.4 ML SYRINGE SQ SCH (05:17)
[2021-08-22] MEDS ORDERED: Famotidine 20 MG/2 ML VIAL IVP SCH (06:00)
[2021-08-22] MEDS: Cetirizine HCl 5 MG/5 ML UDC PO SCH ×2 (08:41→19:31)
[2021-08-22] MEDS: Chlorhexidine Rinse 15 ML MOUTHWASH MM SCH ×2 (08:41→19:31)
[2021-08-22] MEDS ORDERED: *HR* Midazolam HCl 5 MG/5 ML VIAL IVP ONE (12:29)
[2021-08-22] MEDS ORDERED: *HR* Succinylcholine 200 MG/10 ML VIAL IVP ONE (12:29)
[2021-08-22] MEDS ORDERED: *HR* Propofol 200 MG/20 ML VIAL IVP ONE (12:29)
[2021-08-22] MEDS ORDERED: 0.9 % Sodium Chloride 500 ML IVC ONE (23:43)
[2021-08-22] MEDS ORDERED: Ringers Solution, Lactated 500 ML IVC ONE (23:45)
[2021-08-23] MEDS: Ringers Solution, Lactated 1,000 ML IVC SCH (01:07)
[2021-08-23] MEDS: Artificial Tears SOLN 15 ML BOTTLE BOTH EYES SCH ×2 (03:09→08:03)
[2021-08-23] MEDS: Dexamethasone Sodium Phos/PF 10 MG/ML VIAL IVP SCH (03:13)
[2021-08-23] MEDS ORDERED: Ringers Solution, Lactated 500 ML IVC ONE (04:17)
[2021-08-23] MEDS ORDERED: Ringers Solution, Lactated 1,000 ML ONE (04:30)
[2021-08-23 04:31] LABS: ABG Base Excess 2 mEq/L (-2 to 3); ABG HCO3 27 mEq/L (21-27); ABG Oxygen Saturation 96 % (95-98); ABG PCO2 43 mmHg (35-45); ABG PH 7.41 pH Units (7.32-7.45); ABG PO2 85 mmHg (85-104); ABG TCO2 29 mEq/L (20-26); Blood Gas Modality ASSIST CONTROL; Blood Gas VT 400 cc
[2021-08-23] MEDS: FentaNYL (PF) 1,000 MCG/100 ML IV.SOLN IVC SCH (05:27)
[2021-08-23] MEDS: *HR* Enoxaparin 40 MG/0.4 ML SYRINGE SQ SCH (05:29)
[2021-08-23 06:36] LABS: BUN/Creatinine Ratio 33 (6-26); Blood Urea Nitrogen 24 mg/dL (8-23); Calcium 8.7 mg/dL (8.6-10.3); Carbon Dioxide 24 mEq/L (23-29); Chloride 104 mEq/L (98-107); Glucose 209 mg/dL (70-105); Osmolality,Calculated 294 (280-300); Potassium 4.1 mEq/L (3.5-5.1); Sodium 137 mEq/L (136-145); eGFR For African Americans > 60 (> 60); eGFR For Non-African Americans > 60 (> 60)
[2021-08-23] MEDS ORDERED: hydroCHLOROthiazide 25 MG TABLET PO SCH (09:00)
[2021-08-23] MEDS ORDERED: Artificial Tears SOLN 15 ML BOTTLE BOTH EYES PRN (09:17)
[2021-08-23] MEDS ORDERED: Ondansetron 4 MG/2 ML VIAL IVP PRN (09:17)
[2021-08-23] MEDS ORDERED: *HR* Promethazine 25 MG/ML VIAL IM PRN (09:17)
[2021-08-23] MEDS ORDERED: Naloxone 0.4 MG/ML INJ IVP PRN (09:17)
[2021-08-23] MEDS ORDERED: FentaNYL (PF) 1,000 MCG/100 ML IV.SOLN IVC SCH (09:17)
[2021-08-23] MEDS ORDERED: Melatonin 3 MG TABLET PO PRN (09:17)
[2021-08-23] MEDS: Loratadine 10 MG TABLET PO SCH (10:13)
[2021-08-23] MEDS: dexAMETHasone 4 MG TABLET PO SCH ×2 (10:15→17:48)
[2021-08-23] MEDS: Famotidine 20 MG TABLET PO SCH ×2 (10:18→20:24)
[2021-08-23] MEDS: *HR* GlipiZIDE XL (24 HR) 2.5 MG TABLET PO SCH (11:01)
[2021-08-23] MEDS ORDERED: Artificial Tears SOLN 15 ML BOTTLE BOTH EYES SCH (12:00)
[2021-08-23] MEDS ORDERED: Famotidine 20 MG/2 ML VIAL IVP SCH (18:00)
[2021-08-23] MEDS ORDERED: Chlorhexidine Rinse 15 ML MOUTHWASH MM SCH (21:00)
[2021-08-24] MEDS: dexAMETHasone 4 MG TABLET PO SCH ×2 (00:11→09:03)
[2021-08-24] MEDS ORDERED: *HR* LORazepam 2 MG/ML VIAL IVP ONE (01:01)
[2021-08-24] MEDS ORDERED: *HR* Enoxaparin 40 MG/0.4 ML SYRINGE SQ SCH (06:00)
[2021-08-24] MEDS ORDERED: hydroCHLOROthiazide 25 MG TABLET PO SCH (09:00)
[2021-08-24] MEDS: Loratadine 10 MG TABLET PO SCH (09:03)
[2021-08-24] MEDS: *HR* GlipiZIDE XL (24 HR) 2.5 MG TABLET PO SCH (09:03)
[2021-08-24] MEDS: Famotidine 20 MG TABLET PO SCH (09:03)
[2021-08-24] MEDS ORDERED: Dextrose Gel 15 GM/37.5 ML TUBE PO PRN ×2 (10:39)
[2021-08-24] MEDS ORDERED: *HR* Dextrose 50 % in Water (Syg) 50 ML SYRINGE IVP PRN (10:39)
[2021-08-24] MEDS ORDERED: D5% in Water 1,000 ML IVC PRN (10:39)
[2021-08-24 11:12] VITALS: BP 180/76; PULSE 56; TEMP 97.4; O2SAT 96
[2021-08-24] MEDS ORDERED: Insulin LISPRO 300 UNITS/3 ML VIAL SUBQ SCH (11:30)
== END 2021-08-24 12:30 | disposition home or self-care (01) | DRG 916 ==
LOC: EMEROOARM 22:01 → ICNU 23:25 → SUATTDRO 23:25 → ICNU 08-22 00:30 → 2ANU 08-23 13:32
PROVIDERS: ADMIT Internal Medicine; ATTEND Student in an Organized Health Care Education/Training Program